=== PATIENT | male | born 1960 | race Caucasian/White ===

== ENCOUNTER 2020-01-29 13:54 | Inpatient (IN) | payer SELFPAY ==
--- NOTE | 2020-01-29 15:34 | RADIOLOGY REPORT (SQ) ---
EXAM DESCRIPTION: CHEST SINGLE VIEW IMAGES COMPLETED DATE/TIME: 01/29/2020 3:26 pm REASON FOR STUDY: SOB COMPARISON: None. EXAM PARAMETERS: NUMBER OF VIEWS: One view. TECHNIQUE: Single frontal radiographic view of the chest acquired. RADIATION DOSE: NA LIMITATIONS: None. FINDINGS: LUNGS AND PLEURA: No opacities, masses or pneumothorax. No pleural effusion. MEDIASTINUM AND HILAR STRUCTURES: No masses. Contour normal. HEART AND VASCULAR STRUCTURES: Heart normal in size. Normal vasculature. BONES: No acute findings. Degenerative changes in the spine. HARDWARE: None in the chest. OTHER: No other significant finding. IMPRESSION: NO ACUTE RADIOGRAPHIC FINDING IN THE CHEST. TECHNICAL DOCUMENTATION: JOB ID: [id number] 2010 [employer]- All Rights Reserved Reading location - IP/workstation name: [email or web address]
[2020-01-29 16:05] LABS: ABSOLUTE EOSINOPHILS # (AUTO) 0.2 10^3/uL (0.0-0.6); ABSOLUTE MONOCYTES (AUTO) 0.9 10^3/uL (0.1-1.4); ABSOLUTE NEUT (AUTO) 4.6 10^3/uL (1.7-8.2); BASOPHILS % (AUTO) 0.5 % (0-2); EOSINOPHILS % (AUTO) 2.9 % (0-6); HEMATOCRIT 44.4 % (37.9-51.0); HEMOGLOBIN 15.3 g/dL (13.5-17.0); LYMPHOCYTES % (AUTO) 15.1 % (13-45); MEAN CORPUSCULAR HEMOGLOBIN 34.6 pg (27.0-33.4); MEAN CORPUSCULAR HGB CONC 34.6 g/dL (32.0-36.0); MEAN CORPUSCULAR VOLUME 100 fl (80-97); MONOCYTES % (AUTO) 12.7 % (3-13); PLATELET COUNT 161 10^3/uL (150-450); RED BLOOD COUNT 4.43 10^6/uL (4.35-5.55); SEGMENTED NEUTROPHILS % (AUTO) 68.8 % (42-78); TOTAL CELLS COUNTED % (AUTO) 100 %; WHITE BLOOD COUNT 6.7 10^3/uL (4.0-10.5)
[2020-01-29] MEDS ORDERED: MORPHINE SULFATE 10 MG/ML INJ IV ONE (16:12)
--- NOTE | 2020-01-29 16:16 | ER Document Report ---
ED General - General Chief Complaint: Shortness Of Breath Stated Complaint: SHORT OF BREATH/CHEST PRESSURE Time Seen by Provider: 01/29/20 15:09 - HPI Notes: Patient is a 59-year-old male with a history of pulmonary embolus, requiring intervention, who presents to the emergency department for evaluation of chest pain or shortness of breath. He just recently moved here from [place]. He states that he started being more short of breath yesterday. It happened at rest, but he is extremely short of breath with exertion. He has left-sided chest heaviness which does not radiate. He denies any fevers or chills. No coughing. No nausea or vomiting. He states this feels similar to when he had his pulmonary embolus in the past. He is supposed to be on Xarelto. He moved, does not have a new primary care physician, did not have any refills on his Xarelto, so he has been out at this medication for several weeks. He denies any leg pain or swelling. - Related Data Allergies/Adverse Reactions: codeine Adverse Reaction (Verified 01/29/20 14:59) Home Medications: Xarelto, has been off of this for several weeks Past Medical History - General Information source: Patient - Social History Smoking Status: Former Smoker Frequency of alcohol use: Social Drug Abuse: None Family History: Reviewed & Not Pertinent Patient has homicidal ideation: No - Past Medical History Cardiac Medical History: Reports: Hx DVT, Hx Pulmonary Embolism GI Medical History: Reports: Hx Hepatitis - History of hepatitis C, viral load undetectable after treatment Past Surgical History: Reports: Hx Orthopedic Surgery, Other - Thrombectomy from pulmonary arteries Review of Systems - Review of Systems Constitutional: No symptoms reported EENT: No symptoms reported Cardiovascular: See HPI Respiratory: See HPI Gastrointestinal: No symptoms reported Genitourinary: No symptoms reported Musculoskeletal: No symptoms reported Skin: No symptoms reported Neurological/Psychological: No symptoms reported -: Yes All other systems reviewed and negative Physical Exam - Vital signs Vitals: Resp Pulse Ox 13 97 01/29/20 14:27 01/29/20 14:27 - Notes Notes: Vital signs reviewed, please refer to chart. Head is normocephalic, atraumatic. Pupils equal round, reactive to light. Neck is supple without meningismus. Heart is regular rate and rhythm. Lungs are clear to auscultation bilaterally. Abdomen is soft, nontender, normoactive bowel sounds throughout. Extremities without cyanosis, clubbing. Posterior calves are nontender. Peripheral pulses are equal. Skin is warm and dry. Patient is awake, alert, neurological exam is nonfocal. Course - Re-evaluation Re-evalutation: 01/29/20 16:15 Patient presents to the emergency department for evaluation of shortness of breath. On arrival he was found to be hypoxic with an SPO2 of 88% on room air. He is placed on oxygen per nasal cannula. He is placed on a hall monitor, laboratory investigations were obtained. In short, I am primarily concerned that this patient with a history of PE, off of anticoagulation, has a repeat PE. He certainly has the risks for it. CT angiogram is ordered. EKG is without ST changes, but he is tachycardic. He is currently stable, we will continue to monitor. 01/29/20 17:28 I did evaluate the patient CT scan noted large right main pulmonary emboli, bilateral lower lobe pulmonary emboli. I received a phone call from radiology at 1725 notify me of these findings, as well as some mild heart strain, and other largely incidental findings. The patient already has a heparin order placed. He has already been notified of the findings. I will contact medicine for admission. 01/29/20 17:41 It was noted that the patient has not yet had a troponin. This was ordered, I added this lab as collected, and contacted the lab to let them know that this needed a stat result. Will contact medicine once result is back. 01/29/20 18:08 Troponin is mildly elevated. Patient remained stable and is currently chest pain-free. He is 95% on 2 L, heart rate is in the 80s. I spoke with Dr. Nash about this patient. He will come down and evaluate him for further recommendations. 01/29/20 19:52 Dr. Nash did come to the department and evaluate the patient. I was not notified directly from him what he thought, but I do no further orders were placed. I was in the computer and saw his admission order, so the patient will be ordered [place] [facility] [place] - Vital Signs Vital signs: Temp Pulse Resp BP Pulse Ox 26 H 144/101 H 95 01/29/20 19:01 01/29/20 19:00 01/29/20 19:01 - Laboratory Result Diagrams: 01/29/20 14:48 01/29/20 14:48 Laboratory results interpreted by me: 01/29/20 01/29/20 01/29/20 14:48 14:48 14:48 MCV 100 H MCH 34.6 H D-Dimer > 20.00 H* Sodium 135.5 L Alkaline Phosphatase 35 L Urine Ketones Urine Blood 01/29/20 16:47 MCV MCH D-Dimer Sodium Alkaline Phosphatase Urine Ketones 20 H Urine Blood SMALL H - Diagnostic Test Radiology reviewed: Image reviewed, Reports reviewed - EKG Interpretation by Me Additional EKG results interpreted by me: 01/29/20 17:41 Sinus tachycardia with rate of 102 bpm. Borderline right axis deviation. Normal intervals. No acute ST changes concerning for ischemia or infarction. No studies available for comparison. Discharge - Discharge Clinical Impression: Bilateral pulmonary embolism Condition: Stable Disposition: ADMITTED INPATIENT Admitting Provider: Charity (Hospitalist) Unit Admitted: [facility]
[2020-01-29 16:26] LABS: ALBUMIN 4.6 g/dL (3.5-5.0); ALKALINE PHOSPHATASE 35 U/L (38-126); ANION GAP 12 (5-19); ASPARTATE AMINO TRANSFERASE 53 U/L (17-59); BILIRUBIN,DIRECT 0.3 mg/dL (0.0-0.4); BILIRUBIN,TOTAL 1.1 mg/dL (0.2-1.3); BLOOD UREA NITROGEN 10 mg/dL (7-20); CALCIUM 9.4 mg/dL (8.4-10.2); CARBON DIOXIDE 24 mmol/L (22-30); CHLORIDE 100 mmol/L (98-107); GLUCOSE 98 mg/dL (75-110); POTASSIUM 4.5 mmol/L (3.6-5.0)
[2020-01-29] MEDS ORDERED: HEPARIN SOD (PORCINE) 1,000 UNIT/ML 10 ML VIAL IV ONE (17:09)
[2020-01-29 17:10] LABS: APPEARANCE,URINE CLEAR; BILIRUBIN,URINE NEGATIVE (NEGATIVE); COLOR,URINE YELLOW; GLUCOSE, URINE NEGATIVE (NEGATIVE); KETONES,URINE 20 mg/dL (NEGATIVE); LEUKOCYTE ESTERASE,URINE NEGATIVE (NEGATIVE); NITRITE,URINE NEGATIVE (NEGATIVE); PROTEIN,URINE NEGATIVE (NEGATIVE); URINE SPECIFIC GRAVITY 1.009; UROBILINOGEN,URINE NEGATIVE mg/dL (<2.0)
[2020-01-29 17:11] LABS: INTERNATIONAL RATION (INR) 1.09; PROTHROMBIN TIME 14.3 SEC (11.4-15.4)
[2020-01-29 17:12] LABS: PARTIAL THROMBOPLASTIN TIME 32.4 SEC (23.5-35.8)
--- NOTE | 2020-01-29 17:33 | RADIOLOGY REPORT (SQ) ---
EXAM DESCRIPTION: CTA CHEST IMAGES COMPLETED DATE/TIME: 01/29/2020 5:07 pm REASON FOR STUDY: hypoxia, PE history COMPARISON: Same day radiograph TECHNIQUE: CT scan of the chest performed using helical scanning technique with dynamic intravenous contrast injection. Images reviewed with lung, soft tissue and bone windows. Reconstructed coronal and sagittal MPR images reviewed. Additional 3 dimensional post-processing performed to develop Maximal Intensity Projection images (AR P). All images stored on PACS. All CT scanners at this facility use dose modulation, iterative reconstruction, and/or weight based d osing when appropriate to reduce radiation dose to as low as reasonably achievable (ALARA). [facility]: Dose Right [facility]: CareDose [facility]: Dose Right [facility]: Teradose 4D [facility]: [facility] CONTRAST TYPE AND DOSE: contrast/concentration: Isovue 350.00 mmol/ml; Total Contrast Delivered: 70. 0 ml; Total Saline Delivered: 39.1 ml Contrast bolus adequate for pulmonary arteries and aorta. RENAL FUNCTION: Creatinine 0.74 RADIATION DOSE: CT Rad equipment meets quality standard of care and radiation dose reduction techniq ues were employed. CTDIvol: 21.4 - 33.1 mGy. DLP: 877 mGy-cm. . LIMITATIONS: None. FINDINGS: LUNGS AND PLEURA: No masses, infiltrates, or pneumothorax. No pleural effusions or pleura l calcifications. AORTA AND GREAT VESSELS: Mild dilation of the thoracic aorta measuring 3.8 cm. No dissection. HEART: Abnormal right to left ventricular ratio suggestive of elevated right heart pressures. No per icardial effusion. No significant coronary atherosclerosis. PULMONARY ARTERIES: Bilateral pulmonary emboli involving the right main, and lower lobe segmental and subsegmental pulmonary arteries additional left lower lobe segmental and subsegmental clot. No cent ral saddle pulmonary embolus. Lobe and HILAR AND MEDIASTINAL STRUCTURES: No identified masses or abnormal nodes. HARDWARE: None in the chest. UPPER ABDOMEN: Hepatic steatosis. Right renal cysts, partially evaluated THYROID AND OTHER SOFT TISSUES: No masses. No adenopathy. BONES: Mild superior endplate deformity of the T11 vertebral body, chronicity uncertain. 3D MIPS: Confirm above findings. OTHER: No other significant finding. IMPRESSION: 1. Bilateral pulmonary emboli involving the right main pulmonary artery and bilateral l ower lobe segmental and subsegmental branches. Abnormal right to left ventricular ratio suggestive o f right heart strain. 2. Mild superior endplate deformity of the T11 vertebral body, chronicity uncertain. 3. Hepatic steatosis. 4. Mild dilation of the thoracic aorta measuring 3.8 cm. Findings discussed with Dr. Oliveira at 1723 hours on 01/29/2020. COMMENT: Quality ID # [id number]: Final reports with documentation of one or more dose reduction techniques (e.g., Automated exposure control, adjustment of the mA and/or kV according to patient size, use of iterative reconstruction technique) TECHNICAL DOCUMENTATION: JOB ID: [id number] 2010 [employer]- All Rights Reserved Reading location - IP/workstation name: [email or web address]
[2020-01-29] MEDS: HEPARIN SODIUM,PORCINE/D5W 25,000 UNIT/250 ML RTUINJ IV PRN (18:10)
--- NOTE | 2020-01-29 19:08 | PDOC H&P ---
History of Present Illness Patient complains of: Shortness of breath History of Present Illness: CHRISTOPHER BARRON is a 59 year old male with history of massive pulmonary embolism 2 years ago, who presents to the hospital for evaluation of shortness of breath. Shortness of breath began a few days ago and has progressed. Now patient is experiencing significant dyspnea on exertion. He denies any chest pain but did experience some chest tightness. He states that he felt similar to his prior episode of PE. Of note patient recently drove long distance to this area and patient has not been on his Xarelto for the past 2 months. He otherwise denies any other medical problems. Denies any lightheadedness or dizziness. Denies hemoptysis. Denies any history of stroke or any major bleeding in the past several years. Past Medical History Cardiac Medical History: Reports: DVT, Pulmonary Embolism GI Medical History: Reports: Hepatitis - History of hepatitis C, viral load undetectable after treatment Past Surgical History Past Surgical History: Reports: Orthopedic Surgery, Other - Thrombectomy from pulmonary arteries Social History Smoking Status: Former Smoker Frequency of Alcohol Use: Social Hx Recreational Drug Use: No - Advance Directive Resuscitation Status: Full Code Family History Family History: Hypertension Parental Family History Reviewed: Yes Children Family History Reviewed: Unknown Sibling(s) Family History Reviewed.: Unknown Medication/Allergy Home Medications: No Home Medications 01/29/20 Allergies/Adverse Reactions: codeine Adverse Reaction (Verified 01/29/20 14:59) Review of Systems Constitutional: ABSENT: fever(s) Eyes: ABSENT: visual disturbances Ears: ABSENT: hearing changes Cardiovascular: PRESENT: dyspnea on exertion. ABSENT: chest pain, orthropnea Respiratory: ABSENT: cough, hemoptysis Gastrointestinal: ABSENT: hematemesis, hematochezia, nausea, vomiting Genitourinary: ABSENT: hematuria Musculoskeletal: ABSENT: back pain Neurological: ABSENT: dizziness, syncope Endocrine: ABSENT: polyuria Physical Exam Vital Signs: Temp Pulse Resp BP Pulse Ox 17 131/105 H 96 01/29/20 17:25 01/29/20 16:01 01/29/20 17:25 Intake & Output 01/28/20 01/29/20 01/30/20 06:59 06:59 06:59 Weight 104.326 kg General appearance: PRESENT: no acute distress, cooperative Mouth exam: PRESENT: neck supple Neck exam: ABSENT: JVD Respiratory exam: PRESENT: symmetrical, unlabored. ABSENT: accessory muscle use, crackles, retraction, tachypnea, wheezes Cardiovascular exam: PRESENT: RRR, +S1, +S2. ABSENT: tachycardia GI/Abdominal exam: PRESENT: soft. ABSENT: rebound, rigid, tenderness Extremities exam: ABSENT: pedal edema Neurological exam: PRESENT: alert, awake, oriented to person, oriented to place, oriented to time Psychiatric exam: ABSENT: agitated, anxious Focused psych exam: ABSENT: pressured speech Skin exam: ABSENT: jaundice Results Laboratory Results: 01/29/20 14:48 01/29/20 14:48 01/29/20 01/29/20 01/29/20 14:48 14:48 16:47 WBC 6.7 RBC 4.43 Hgb 15.3 Hct 44.4 MCV 100 H MCH 34.6 H MCHC 34.6 RDW 14.0 Plt Count 161 Seg Neutrophils % 68.8 Sodium 135.5 L Potassium 4.5 Chloride 100 Carbon Dioxide 24 Anion Gap 12 BUN 10 Creatinine 0.74 Est GFR ( Amer) > 60 Glucose 98 Calcium 9.4 Total Bilirubin 1.1 AST 53 Alkaline Phosphatase 35 L Total Protein 8.0 Albumin 4.6 Urine Color YELLOW Urine Appearance CLEAR Urine pH 7.0 Ur Specific [place] 1.009 Urine Protein NEGATIVE Urine Glucose (UA) NEGATIVE Urine Ketones 20 H Urine Blood SMALL H Urine Nitrite NEGATIVE Ur Leukocyte Esterase NEGATIVE Urine WBC (Auto) 0 Urine RBC (Auto) 1 01/29/20 14:48 Troponin I 0.186 Impressions: Chest X-Ray 01/29/20 15:04 IMPRESSION: NO ACUTE RADIOGRAPHIC FINDING IN THE CHEST. Chest/Abdomen CTA 01/29/20 16:13 IMPRESSION: 1. Bilateral pulmonary emboli involving the right main pulmonary artery and bilateral lower lobe segmental and subsegmental branches. Abnormal right to left ventricular ratio suggestive of right heart strain. 2. Mild superior endplate deformity of the T11 vertebral body, chronicity uncertain. 3. Hepatic steatosis. 4. Mild dilation of the thoracic aorta measuring 3.8 cm. Findings discussed with Dr. Oliveira at 1723 hours on 01/29/2020. Assessment and Plan - Diagnosis (1) Bilateral pulmonary embolism Is this a current diagnosis for this admission?: Yes Plan: Recurrent episode secondary to long trip and stoppage of anticoagulation CTA showing evidence of potential right heart strain consistent with submassive PE. However EKG is not too bad in terms of evidence of RV strain Patient initiated on therapeutic anticoagulation which will be continued Pain control as needed Currently hemodynamically stable Check stat echo to evaluate RV dysfunction (2) Acute respiratory failure with hypoxia Is this a current diagnosis for this admission?: Yes Plan: Requiring 2 L nasal cannula. Secondary to PE. (3) Elevated troponin Is this a current diagnosis for this admission?: Yes Plan: Secondary to right heart strain from pulmonary embolism. Will monitor troponin. - Time Time Spent with patient: 35 or more minutes Anticipated Discharge Disposition: Home, Self Care Anticipated Discharge Timeframe: within 72 hours
[2020-01-29] MEDS ORDERED: ONDANSETRON HCL INJ/PF 4 MG/2 ML SDV IV PRN (19:27)
[2020-01-29] MEDS ORDERED: ACETAMINOPHEN 325 MG TABLET PO PRN (19:27)
[2020-01-29] MEDS ORDERED: KETOROLAC TROMETHAMINE INJ/PF 30 MG/1 ML SDV IV PRN (19:31)
--- NOTE | 2020-01-29 20:31 | XCELERA REPORT ---
[address] [address] Transthoracic Echocardiogram Report Name: CHRISTOPHER BARRON Age: 59 yrs Gender: Male : 1960 Patient Status: Inpatient Patient Location: [place] [address]^A Study Date: 01/29/2020 06:11 PM Height: 72 in Weight: 230 lb BSA: 2.3 m2 Procedure: A complete two-dimensional transthoracic echocardiogram was performed (2D, M-mode, spectral and color flow Doppler). The study was technically limited with all images being suboptimal in quality. Reason For Study: submassive PE. Evaluate RV dysfunction. Ordering Physician: BONNIE JARQUIN Performed By: Rose Mary Jackson Interpretation Summary The left ventricle is normal in size. Left ventricular systolic function is normal. LV EF is 55%. Doppler measurements suggest impaired left ventricular relaxation, which is associated with grade I/IV or mild diastolic dysfunction. Paradoxical motion of the left ventricular septum. Moderate RVE with McConnel's sign. Trace MR, moderate TR. Borderline to mildly elevated pulmonary pressures estimated between 39 and 44 mHg. The presence of McConnel's sign, paradoximal motion of the interventricular septum, moderate TR and borderline to mildly elevated pulmonary pressurs are consistent with RV strain. MMode/2D Measurements & Calculations RVDd: 4.2 cm LVIDd: 4.7 cm FS: 25.3 % Ao root diam: 3.7 cm IVSd: 1.1 cm LVIDs: 3.5 cm EDV(Teich): Ao root area: 102.3 ml LVPWd: 1.00 cm 10.5 cm2 ESV(Teich): LA dimension: 2.8 cm 51.3 ml EF(Teich): 49.9 % LVLd ap4: 7.4 cm SV(MOD-sp4): EDV(MOD-sp4): 48.0 ml 109.0 ml LVLs ap4: 7.0 cm ESV(MOD-sp4): 61.0 ml EF(MOD-sp4): 44.0 % Doppler Measurements & Calculations MV E max iris: MV P1/2t max iris: Ao V2 max: AI max iris: 43.5 cm/sec 83.9 cm/sec 104.2 cm/sec 124.9 cm/sec MV A max iris: MV P1/2t: 59.3 msec Ao max PG: AI max P.2 mmHg 72.5 cm/sec 4.3 mmHg MVA(P1/2t): 3.7 cm2 AI dec slope: MV E/A: 0.60 MV dec slope: 113.4 cm/sec2 414.3 cm/sec2 AI P1/2t: 322.6 msec MV dec time: 0.25 sec LV V1 max PG: PA V2 max: TR max iris: AV P1/2t-pr_phl: 2.9 mmHg 54.4 cm/sec 290.8 cm/sec 322.6 msec LV V1 max: PA max P.2 mmHg TR max P.1 cm/sec 33.8 mmHg MV P1/2t-pr_phl: 59.3 msec Left Ventricle The left ventricle is normal in size. Left ventricular systolic function is normal. LV EF is 55%. Doppler measurements suggest impaired left ventricular relaxation, which is associated with grade I/IV or mild diastolic dysfunction. Paradoxical motion of the left ventricular septum. Right Ventricle The right ventricle is moderately dilated. There is dyskinesis of the free wall of the right ventricle with preserved function and motion of the apex (McConnel's sign). Atria The right atrium is normal. The left atrial size is normal. The interatrial septum is difficult to see, but appears to be grossly normal. Mitral Valve The mitral valve is grossly normal. There is no evidence of mitral valve prolapse. There is no mitral valve stenosis. There is a trace amount of mitral regurgitation. Aortic Valve The aortic valve is mildly calcified. There is no aortic valvular vegetation. There is no aortic valve stenosis. No aortic regurgitation is present. Tricuspid Valve The tricuspid valve is not well visualized, but is grossly normal. There is no tricuspid valve prolapse. There is no tricuspid stenosis. There is a moderate amount of tricuspid regurgitation. Borderline to mildly elevated pulmonary pressures estimated between 39 and 44 mHg. Pulmonic Valve The pulmonic valve is not well seen, but is grossly normal. There is no vegetation on the pulmonic valve. There is no pulmonic valvular stenosis. There is no pulmonic valvular regurgitation. Effusions There is no pericardial effusion. : BONNIE JARQUIN Antonio
--- NOTE | 2020-01-29 21:19 | EKG REPORT ---
SEVERITY:- OTHERWISE NORMAL ECG - SINUS TACHYCARDIA : Confirmed by: Matt Javier MD 29-Jan-2020 21:19:00
[2020-01-30 06:49] LABS: HEMATOCRIT 42.7 % (37.9-51.0); HEMOGLOBIN 15.1 g/dL (13.5-17.0); MEAN CORPUSCULAR HGB CONC 35.3 g/dL (32.0-36.0); MEAN CORPUSCULAR VOLUME 99 fl (80-97); PLATELET COUNT 153 10^3/uL (150-450); RED CELL DISTRIBUTION WIDTH 14.4 % (11.5-14.0); WHITE BLOOD COUNT 5.3 10^3/uL (4.0-10.5)
[2020-01-30 06:56] LABS: APPEARANCE,URINE CLEAR; BILIRUBIN,URINE NEGATIVE (NEGATIVE); COLOR,URINE YELLOW; GLUCOSE, URINE NEGATIVE (NEGATIVE); KETONES,URINE 20 mg/dL (NEGATIVE); LEUKOCYTE ESTERASE,URINE NEGATIVE (NEGATIVE); NITRITE,URINE NEGATIVE (NEGATIVE); PROTEIN,URINE 30 mg/dL (NEGATIVE); URINE SPECIFIC GRAVITY 1.035
[2020-01-30] MEDS ORDERED: INFLUENZA QUAD (6MOS+) 2020-21 VAC 0.5 ML SYR IM ONE (08:00)
[2020-01-30 08:01] LABS: ANION GAP 11 (5-19); BLOOD UREA NITROGEN 12 mg/dL (7-20); CALCIUM 9.5 mg/dL (8.4-10.2); CARBON DIOXIDE 23 mmol/L (22-30); CHLORIDE 102 mmol/L (98-107); GLUCOSE 113 mg/dL (75-110); POTASSIUM 4.4 mmol/L (3.6-5.0)
[2020-01-30] MEDS: HEPARIN SODIUM,PORCINE/D5W 25,000 UNIT/250 ML RTUINJ IV PRN ×2 (08:23→22:41)
[2020-01-30] MEDS ORDERED: KETOROLAC TROMETHAMINE INJ/PF 30 MG/1 ML SDV IV PRN (09:48)
--- NOTE | 2020-01-30 09:57 | PDOC PROGRESS REPORT ---
Subjective Progress Note for:: 01/30/20 Subjective:: Complains of having a difficult time sleeping yesterday night due to chest pains. He also complains of pain in his lower back which he thinks is from sitting down for prolonged periods. I encouraged him to get up and go into chair. He experiences significant dyspnea even on doing basic ADLs such as going to the bathroom or eating. He is oxygenating adequately on 2 L nasal cannula. Remains hemodynamically stable. Reason For Visit: SUBMASSIVE PE Physical Exam Vital Signs: Temp Pulse Resp BP Pulse Ox 97.5 F 78 17 131/94 H 99 01/30/20 07:55 01/30/20 07:24 01/30/20 07:24 01/30/20 07:24 01/30/20 07:24 Intake & Output 01/29/20 01/30/20 01/31/20 06:59 06:59 06:59 Intake Total 250 Balance 250 Weight 101 kg General appearance: PRESENT: no acute distress, cooperative Neck exam: ABSENT: JVD Respiratory exam: PRESENT: symmetrical, unlabored. ABSENT: rales, stridor, tachypnea, wheezes Cardiovascular exam: PRESENT: RRR, +S1, +S2. ABSENT: tachycardia GI/Abdominal exam: PRESENT: soft. ABSENT: rebound, rigid, tenderness Neurological exam: PRESENT: alert, awake, oriented to person, oriented to place, oriented to time, oriented to situation Results Laboratory Results: 01/30/20 06:28 01/30/20 06:28 01/29/20 01/29/20 01/29/20 14:48 14:48 16:47 WBC 6.7 RBC 4.43 Hgb 15.3 Hct 44.4 MCV 100 H MCH 34.6 H MCHC 34.6 RDW 14.0 Plt Count 161 Seg Neutrophils % 68.8 Sodium 135.5 L Potassium 4.5 Chloride 100 Carbon Dioxide 24 Anion Gap 12 BUN 10 Creatinine 0.74 Est GFR ( Amer) > 60 Glucose 98 Calcium 9.4 Total Bilirubin 1.1 AST 53 Alkaline Phosphatase 35 L Total Protein 8.0 Albumin 4.6 Urine Color YELLOW Urine Appearance CLEAR Urine pH 7.0 Ur Specific [place] 1.009 Urine Protein NEGATIVE Urine Glucose (UA) NEGATIVE Urine Ketones 20 H Urine Blood SMALL H Urine Nitrite NEGATIVE Ur Leukocyte Esterase NEGATIVE Urine WBC (Auto) 0 Urine RBC (Auto) 1 01/30/20 01/30/20 01/30/20 06:23 06:28 06:28 WBC 5.3 RBC 4.30 L Hgb 15.1 Hct 42.7 MCV 99 H MCH 35.0 H MCHC 35.3 RDW 14.4 H Plt Count 153 Seg Neutrophils % Sodium 136.3 L Potassium 4.4 Chloride 102 Carbon Dioxide 23 Anion Gap 11 BUN 12 Creatinine 0.73 Est GFR ( Amer) > 60 Glucose 113 H Calcium 9.5 Total Bilirubin AST Alkaline Phosphatase Total Protein Albumin Urine Color YELLOW Urine Appearance CLEAR Urine pH 6.0 Ur Specific [place] 1.035 Urine Protein 30 H Urine Glucose (UA) NEGATIVE Urine Ketones 20 H Urine Blood SMALL H Urine Nitrite NEGATIVE Ur Leukocyte Esterase NEGATIVE Urine WBC (Auto) 1 Urine RBC (Auto) 1 01/29/20 01/29/20 14:48 20:38 Troponin I 0.186 0.126 Impressions: Chest X-Ray 01/29/20 15:04 IMPRESSION: NO ACUTE RADIOGRAPHIC FINDING IN THE CHEST. Chest/Abdomen CTA 01/29/20 16:13 IMPRESSION: 1. Bilateral pulmonary emboli involving the right main pulmonary artery and bilateral lower lobe segmental and subsegmental branches. Abnormal right to left ventricular ratio suggestive of right heart strain. 2. Mild superior endplate deformity of the T11 vertebral body, chronicity uncertain. 3. Hepatic steatosis. 4. Mild dilation of the thoracic aorta measuring 3.8 cm. Findings discussed with Dr. Oliveira at 1723 hours on 01/29/2020. Assessment and Plan - Diagnosis (1) Bilateral pulmonary embolism Is this a current diagnosis for this admission?: Yes Plan: Submassive pulmonary embolism with evidence of RV strain on echo and CT Recurrent episode secondary to long trip and stoppage of anticoagulation Remains hemodynamically stable Continue heparin drip for now with plan to transition in a day or 2 to oral anticoagulation Pain control as needed. We will try a dose of IV morphine and subsequently Toradol as needed Echo showing RV strain with evidence of RV dysfunction and moderate RV dilation Pulmonary consulted (2) Acute respiratory failure with hypoxia Is this a current diagnosis for this admission?: Yes Plan: Requiring 2 L nasal cannula. Secondary to PE. We will continue to monitor (3) Elevated troponin Is this a current diagnosis for this admission?: Yes Plan: Secondary to right heart strain from pulmonary embolism burden. ACS unlikely. - Time Time Spent with patient: 15-24 minutes Anticipated Discharge Disposition: Home, Self Care Anticipated Discharge Timeframe: within 48 hours
[2020-01-30] MEDS ORDERED: MORPHINE SULFATE 10 MG/ML INJ IV ONE (10:30)
--- NOTE | 2020-01-30 16:21 | EKG REPORT ---
SEVERITY:- BORDERLINE ECG - SINUS RHYTHM BORDERLINE T ABNORMALITIES, ANT-LAT LEADS BORDERLINE PROLONGED QT INTERVAL : Confirmed by: Matt Javier MD 30-Jan-2020 16:20:22
[2020-01-30] MEDS ORDERED: DIPHENHYDRAMINE HCL 50 MG CAPSULE PO PRN (22:00)
[2020-01-31] MEDS ORDERED: RIVAROXABAN 15 MG TABLET PO SCH (08:15)
[2020-01-31 12:18] VITALS: BP 127/89
--- NOTE | 2020-01-31 12:48 | PDOC DISCHARGE SUMMARY ---
Impression - Admit/DC Date/PCP Admission Date/Primary Care Provider: 01/29/20 19:36 Discharge Date: 01/31/20 - Discharge Diagnosis (1) Bilateral pulmonary embolism Is this a current diagnosis for this admission?: Yes (2) Acute respiratory failure with hypoxia Is this a current diagnosis for this admission?: Yes (3) Elevated troponin Is this a current diagnosis for this admission?: Yes - Additional Information Resuscitation Status: Full Code Discharge Diet: Regular Discharge Activity: Energy Conservation, Slowly Increase Activity Referrals: [facility] [Provider Group] Prescriptions: RX: Naproxen [Naprosyn 250 mg Tablet] 250 mg PO TIDP PRN #18 tablet PRN Reason: Rivaroxaban [Xarelto] 20 mg PO WSUPPER #30 tablet RX: Rivaroxaban [Xarelto 15 mg Tablet] 15 mg PO BIDBS 21 Days #41 tablet Home Medications: RX: Naproxen [Naprosyn 250 mg Tablet] 250 mg PO TIDP PRN #18 tablet 01/31/20 RX: Rivaroxaban [Xarelto 15 mg Tablet] 15 mg PO BIDBS 21 Days #41 tablet 01/31/20 Rivaroxaban [Xarelto] 20 mg PO WSUPPER #30 tablet 01/31/20 History of Present Illiness History of Present Illness: CHRISTOPHER BARRON is a 59 year old male with history of massive pulmonary embolism 2 years ago, who presents to the hospital for evaluation of shortness of breath. Shortness of breath began a few days ago and has progressed. Now patient is experiencing significant dyspnea on exertion. He denies any chest pain but did experience some chest tightness. He states that he felt similar to his prior episode of PE. Of note patient recently drove long distance to this area and patient has not been on his Xarelto for the past 2 months. He otherwise denies any other medical problems. Denies any lightheadedness or dizziness. Denies hemoptysis. Denies any history of stroke or any major bleeding in the past several years. Hospital Course Hospital Course: Patient was admitted to the hospital for treatment of bilateral pulmonary embolisms worse on the right side. Patient was also experiencing right-sided chest pain. On presentation, he was notably tachycardic and hypoxic secondary to his PE. CT scan of the chest did reveal PE with evidence of right heart strain but no infarct was noted. Stat echocardiogram was obtained which was consistent with right heart strain with moderate RV dilation and some dysfunction. However, patient was hemodynamically stable and was maintaining adequate saturation on only 2 L nasal cannula. Patient's findings were consist ent with submassive pulmonary embolism. He was started on heparin drip and sent to the [facility]. He maintained therapeutic PTTs. He also received pain medications. His PE recurrence was secondary to noncompliance and stoppage of his Xarelto over 2 months ago as well as his recent long distance travel from [place]. Patient was on heparin for 2 days with significant improvement so he is breathing. His tachycardia resolved. His hypoxia also resolved and he has been maintaining on room air throughout yesterday. Ambulatory pulse ox was done this morning outpatient maintained 95% on room air. Heparin drip has been discontinued this morning and patient has been transitioned to Xarelto and has received the first dose here. He has been given coupons for Xarelto and will be discharged on Xarelto 15mg bid for 21 days then 20mg daily lifelong. Plan discussed with patient and he is agreeable to plan. Patient also seen by social work to look into his insurance situation. I have advised patient stay off any strenuous exertion for the next 2 weeks before getting a job. Physical Exam Vital Signs: Temp Pulse Resp BP Pulse Ox 97.7 F 70 18 127/89 H 95 01/31/20 11:43 01/31/20 11:43 01/31/20 11:43 01/31/20 11:43 01/31/20 11:43 Intake & Output 01/30/20 01/31/20 02/01/20 06:59 06:59 06:59 Intake Total 1704 Balance 1704 Weight 101 kg 103.9 kg General appearance: PRESENT: no acute distress, cooperative Neck exam: ABSENT: JVD Respiratory exam: PRESENT: clear to auscultation valentin, unlabored. ABSENT: tachypnea, wheezes Cardiovascular exam: PRESENT: RRR, +S1, +S2. ABSENT: tachycardia GI/Abdominal exam: PRESENT: soft. ABSENT: rebound, rigid, tenderness Neurological exam: PRESENT: alert, awake, oriented to person, oriented to place, oriented to time Results Laboratory Results: WBC 5.3 10^3/uL (4.0-10.5) 01/30/20 06:28 RBC 4.30 10^6/uL (4.35-5.55) L 01/30/20 06:28 Hgb 15.1 g/dL (13.5-17.0) 01/30/20 06:28 Hct 42.7 % (37.9-51.0) 01/30/20 06:28 MCV 99 fl (80-97) H 01/30/20 06:28 MCH 35.0 pg (27.0-33.4) H 01/30/20 06:28 MCHC 35.3 g/dL (32.0-36.0) 01/30/20 06:28 RDW 14.4 % (11.5-14.0) H 01/30/20 06:28 Plt Count 153 10^3/uL (150-450) 01/30/20 06:28 Lymph % (Auto) 15.1 % (13-45) 01/29/20 14:48 [place] % (Auto) 12.7 % (3-13) 01/29/20 14:48 Eos % (Auto) 2.9 % (0-6) 01/29/20 14:48 Baso % (Auto) 0.5 % (0-2) 01/29/20 14:48 Absolute Neuts (auto) 4.6 10^3/uL (1.7-8.2) 01/29/20 14:48 Absolute Lymphs (auto) 1.0 10^3/uL (0.5-4.7) 01/29/20 14:48 Absolute Monos (auto) 0.9 10^3/uL (0.1-1.4) 01/29/20 14:48 Absolute Eos (auto) 0.2 10^3/uL (0.0-0.6) 01/29/20 14:48 Absolute Basos (auto) 0.0 10^3/uL (0.0-0.2) 01/29/20 14:48 Seg Neutrophils % 68.8 % (42-78) 01/29/20 14:48 PT 14.3 SEC (11.4-15.4) 01/29/20 14:48 INR 1.09 01/29/20 14:48 APTT 79.4 SEC (23.5-35.8) H 01/31/20 05:33 D-Dimer > 20.00 ug/mL (0.00-0.50) H* 01/29/20 14:48 Sodium 136.3 mmol/L (137-145) L 01/30/20 06:28 Potassium 4.4 mmol/L (3.6-5.0) 01/30/20 06:28 Chloride 102 mmol/L (98-107) 01/30/20 06:28 Carbon Dioxide 23 mmol/L (22-30) 01/30/20 06:28 Anion Gap 11 (5-19) 01/30/20 06:28 BUN 12 mg/dL (7-20) 01/30/20 06:28 Creatinine 0.73 mg/dL (0.52-1.25) 01/30/20 06:28 Est GFR ( Amer) > 60 (>60) 01/30/20 06:28 Est GFR (MDRD) Non-Af > 60 (>60) 01/30/20 06:28 Glucose 113 mg/dL (75-110) H 01/30/20 06:28 Calcium 9.5 mg/dL (8.4-10.2) 01/30/20 06:28 Total Bilirubin 1.1 mg/dL (0.2-1.3) 01/29/20 14:48 Direct Bilirubin 0.3 mg/dL (0.0-0.4) 01/29/20 14:48 Neonat Total Bilirubin Not Reportable 01/29/20 14:48 Neonat Direct Bilirubin Not Reportable 01/29/20 14:48 Neonat Indirect Bili Not Reportable 01/29/20 14:48 AST 53 U/L (17-59) 01/29/20 14:48 ALT 45 U/L (<50) 01/29/20 14:48 Alkaline Phosphatase 35 U/L (38-126) L 01/29/20 14:48 Troponin I 0.126 ng/mL 01/29/20 20:38 Total Protein 8.0 g/dL (6.3-8.2) 01/29/20 14:48 Albumin 4.6 g/dL (3.5-5.0) 01/29/20 14:48 Urine Color YELLOW 01/30/20 06:23 Urine Appearance CLEAR 01/30/20 06:23 Urine pH 6.0 (5.0-9.0) 01/30/20 06:23 Ur Specific Lopez 1.035 01/30/20 06:23 Urine Protein 30 mg/dL (NEGATIVE) H 01/30/20 06:23 Urine Glucose (UA) NEGATIVE mg/dL (NEGATIVE) 01/30/20 06:23 Urine Ketones 20 mg/dL (NEGATIVE) H 01/30/20 06:23 Urine Blood SMALL (NEGATIVE) H 01/30/20 06:23 Urine Nitrite NEGATIVE (NEGATIVE) 01/30/20 06:23 Urine Bilirubin NEGATIVE (NEGATIVE) 01/30/20 06:23 Urine Urobilinogen 2.0 mg/dL (<2.0) H 01/30/20 06:23 Ur Leukocyte Esterase NEGATIVE (NEGATIVE) 01/30/20 06:23 Urine WBC (Auto) 1 /HPF 01/30/20 06:23 Urine RBC (Auto) 1 /HPF 01/30/20 06:23 Urine Mucus (Auto) OCC /LPF 01/30/20 06:23 Urine Ascorbic Acid NEGATIVE (NEGATIVE) 01/30/20 06:23 01/29/20 01/29/20 14:48 20:38 Troponin I 0.186 0.126 Impressions: Chest X-Ray 01/29/20 15:04 IMPRESSION: NO ACUTE RADIOGRAPHIC FINDING IN THE CHEST. Chest/Abdomen CTA 01/29/20 16:13 IMPRESSION: 1. Bilateral pulmonary emboli involving the right main pulmonary artery and bilateral lower lobe segmental and subsegmental branches. Abnormal right to left ventricular ratio suggestive of right heart strain. 2. Mild superior endplate deformity of the T11 vertebral body, chronicity uncertain. 3. Hepatic steatosis. 4. Mild dilation of the thoracic aorta measuring 3.8 cm. Findings discussed with Dr. Oliveira at 1723 hours on 01/29/2020. Plan Time Spent: Greater than 30 Minutes Stroke Is this a Stroke Patient?: No Acute Heart Failure Is this a Heart Failure Patient?: No
--- NOTE | 2020-01-31 17:56 | EKG REPORT ---
SEVERITY:- NORMAL ECG - SINUS RHYTHM : Confirmed by: Matt Javier MD 31-Jan-2020 17:54:56
== END 2020-01-31 14:45 | disposition home or self-care (01) | DRG 175 ==
LOC: ER 13:54 → EH 19:36 → 3W 22:31
PROVIDERS: ADMIT Internal Medicine; ATTEND Internal Medicine
PROC: 3E0234Z Introduction of Serum, Toxoid and Vaccine into Muscle, Percutaneous Approach (ICD-10-PCS; principal; 2020-01-31)
DX: I26.99 Other pulmonary embolism without acute cor pulmonale (principal); J96.01 Acute respiratory failure with hypoxia; R79.89 Other specified abnormal findings of blood chemistry; T45.516A Underdosing of anticoagulants, initial encounter; Z86.711 Personal history of pulmonary embolism; Z79.01 Long term (current) use of anticoagulants; Z86.19 Personal history of other infectious and parasitic diseases; Z87.891 Personal history of nicotine dependence; Z82.49 Family history of ischemic heart disease and other diseases of the circulatory system; Z88.6 Allergy status to analgesic agent; Z23 Encounter for immunization
CPT/HCPCS: 36415; 71045; 71275; 80048; 80053; 81001; 84484; 85025; 85027; 85379; 85610; 85730; 90471; 90686; 93005; 93010; 93306; 96374; 96375; 99285; G0008; J1644; J1885; J2270